=== PATIENT | female | born 1950 | race Caucasian/White ===

== ENCOUNTER 2024-07-03 10:14 | Emergency (ER) | payer OTHER ==
[2024-07-03] MEDS ORDERED: NA CHLORIDE 0.9% 1,000 ML ONE (10:31)
[2024-07-03] MEDS ORDERED: ONDANSETRON 4 MG/2 ML VIAL ONE (10:31)
[2024-07-03] MEDS ORDERED: MORPHINE 4 MG/ML SYR ONE (10:31)
[2024-07-03] MEDS ORDERED: NA CHLORIDE 0.9% 100 ML ONE (10:52)
[2024-07-03] MEDS ORDERED: CEFTRIAXONE 1000 MG/VIAL ONE (10:52)
[2024-07-03 10:58] LABS: Absolute Lymphocytes (CBC) 0.4 K/uL (0.7-4.9); Absolute Monocytes 0.6 K/uL (0.1-1.3); Absolute Neutrophil 8.4 K/uL (1.8-8.0); Basophils % 0.3 % (0-1.3); Eosinophils % 0.1 % (0-4.4); Hematocrit 37.6 % (36.0-45.0); Hemoglobin 12.6 g/dL (12.0-15.0); Lymphocytes % 4.8 % (15.3-44.8); MCH 28.2 pg (27.0-35.0); MCHC 33.6 g/dL (32.0-36.0); MPV 7.9 fL (7.6-11.3); Neutrophils % 88.8 % (41.7-73.7); Platelets 198 thou/uL (152-406); RBC Red Blood Cell Count 4.48 M/uL (3.86-4.86); Red Cell Distribution Width 14.2 % (12.1-15.2)
[2024-07-03 11:17] LABS: Albumin 3.3 g/dL (3.4-5.0); Albumin/Globulin Ratio 0.9 (1.1-1.8); Anion Gap 10.5 mEq/L (5.0-15.0); Bilirubin Total 0.7 mg/dL (0.2-1.0); Globulin 3.7 g/dL (2.3-3.5); Potassium 3.5 mEq/L (3.5-5.1)
[2024-07-03 11:50] LABS: Blood Morphology Comment NOT SEEN (NOT SEEN); Platelet Estimate ADEQ; White Blood Cell Scan OK (OK)
--- NOTE | 2024-07-03 12:09 | RAD REPORT ---
EXAMINATION: CT ABDOMEN AND PELVIS WITH CONTRAST CLINICAL INDICATION: Abdominal pain TECHNIQUE: CT abdomen and pelvis was performed, after the administration of 100 cc Isovue-300.. Sagit gregory and coronal reconstructions were obtained. One or more of the following dose reduction techniques were used: Automated exposure control, adjustment of the mA and kV according to patient si ze, and iterative reconstruction. Unless otherwise specified, incidental findings do not require dedicated imaging follow-up. [id number]. Oral contrast was not given which limits evaluation of bowel and appendix. COMPARISON: .None FINDINGS: Small gallstone. Gallbladder wall does not appear thickened. Tiny low-density lesions in the liver are too small to characterize but probably benign. Spleen, pancreas, adrenals and left kidney unremarkable. Small right renal calculus. No hydronephrosis. Liver, spleen, pancreas, adrenals and kidneys appear unremarkable No evidence of diverticulitis. An abnormal appendix is not seen. Bladder wall appears mildly thickened. No adnexal mass. Postsurgical changes lumbar spine. Mild anterior subluxation L3 on L4 and L4 on L5. Small umbilical hernia : IMPRESSION: Cholelithiasis without evidence Small nonobstructing right renal calculus Mild bladder wall thickening may indicate cystitis
--- NOTE | 2024-07-03 12:09 | RAD REPORT ---
Procedure: Chest Single View HISTORY: Abdominal pain COMPARISON: 2011 FINDINGS: The lungs appear clear of acute infiltrate. No significant pleural effusion noted. The heart is normal size. IMPRESSION: No acute abnormality is displayed.
[2024-07-03] MEDS ORDERED: CEFDINIR 300 MG CAP PO ONE (12:40)
[2024-07-03] MEDS ORDERED: CIPROFLOXACIN HCL 500 MG TAB ONE (12:40)
[2024-07-03 12:56] LABS: Specific Gravity 1.009 (1.005-1.030); Sqamous Epithelial <5 /HPF (None Seen); Urine Bacteria <20 /HPF (<20); Urine Bilirubin NEGATIVE (Negative); Urine Blood Negative (Negative); Urine Clarity Turbid (Clear); Urine Color Colorless (Yellow); Urine Culture Reflex Order REFLEXED; Urine Glucose NEGATIVE (Negative); Urine Ketones NEGATIVE (Negative); Urine Microscopic Reflex YN ORDER UMIC; Urine Nitrite NEGATIVE (Negative); Urine Protein NEGATIVE (Negative); Urine RBC <5 /HPF (None Seen); Urine Urobilinogen Normal (Normal); Urine WBC 20-50 /HPF (<5)
--- NOTE | 2024-07-03 12:56 | EDPHYS ---
Physician Documentation [facility] Name: Eboni Angela Age: 73 yrs Sex: Female : 1950 Arrival Date: 07/03/2024 Time: 10:14 Bed 8 Private MD: Daron Gonsalez HPI: 07/03 12:51 This 73 yrs old Female presents to ER via Ambulatory with complaints of Low sesar Back Pain, Urinary Problem. 12:51 The patient presents with pain that is acute, with no known mechanism of injury. The sesar symptoms are located in the low back, left low back and left mid back. The pain does not radiate. The problem was sustained from unknown cause. Modifying factors: The patient symptoms are alleviated by nothing, the patient symptoms are aggravated by any movement. Historical: - Allergies: 10:32 No Known Allergies; hb - Home Meds: 10:32 hydroxychloroquine oral [Active]; hb - PSHx: 10:32 Carpal Tunnel - Right; Back; hb - Immunization history:: Adult Immunizations up to date. - Infectious Disease History:: Denies. - Social history:: Smoking status: Patient denies any tobacco usage or history of. - Family history:: not pertinent. ROS: 12:52 Constitutional: Negative for fever, chills, and weight loss, Eyes: Negative for injury, sesar pain, redness, and discharge, ENT: Negative for injury, pain, and discharge, Neck: Negative for injury, pain, and swelling, Cardiovascular: Negative for chest pain, palpitations, and edema, Respiratory: Negative for shortness of breath, cough, wheezing, and pleuritic chest pain, Abdomen/GI: Negative for abdominal pain, nausea, vomiting, diarrhea, and constipation, MS/Extremity: Negative for injury and deformity, Skin: Negative for injury, rash, and discoloration, Neuro: Negative for headache, weakness, numbness, tingling, and seizure, Psych: Negative for depression, anxiety, suicide ideation, homicidal ideation, and hallucinations, Allergy/Immunology: Negative for hives, rash, and allergies, Endocrine: Negative for neck swelling, polydipsia, polyuria, polyphagia, and marked weight changes, Hematologic/Lymphatic: Negative for swollen nodes, abnormal bleeding, and unusual bruising, 12:52 Back: Positive for pain at rest, flank pain, on the right, 12:52 : Positive for urinary symptoms, urinary frequency, small amounts, burning with urination, Exam: 12:53 Constitutional: This is a well developed, well nourished patient who is awake, alert, sesar and in no acute distress. Head/Face: Normocephalic, atraumatic. Eyes: Pupils equal round and reactive to light, extra-ocular motions intact. Lids and lashes normal. Conjunctiva and sclera are non-icteric and not injected. Cornea within normal limits. Periorbital areas with no swelling, redness, or edema. ENT: Nares patent. No nasal discharge, no septal abnormalities noted. Tympanic membranes are normal and external auditory canals are clear. Oropharynx with no redness, swelling, or masses, exudates, or evidence of obstruction, uvula midline. Mucous membranes moist. Neck: Trachea midline, no thyromegaly or masses palpated, and no cervical lymphadenopathy. Supple, full range of motion without nuchal rigidity, or vertebral point tenderness. No Meningismus. Chest/axilla: Normal chest wall appearance and motion. Nontender with no deformity. No lesions are appreciated. Cardiovascular: Regular rate and rhythm with a normal S1 and S2. No gallops, murmurs, or rubs. Normal PMI, no JVD. No pulse deficits. Respiratory: Lungs have equal breath sounds bilaterally, clear to auscultation and percussion. No rales, rhonchi or wheezes noted. No increased work of breathing, no retractions or nasal flaring. Abdomen/GI: Soft, non-tender, with normal bowel sounds. No distension or tympany. No guarding or rebound. No evidence of tenderness throughout. Skin: Warm, dry with normal turgor. Normal color with no rashes, no lesions, and no evidence of cellulitis. MS/ Extremity: Pulses equal, no cyanosis. Neurovascular intact. Full, normal range of motion., bilateral aka Neuro: Awake and alert, GCS 15, oriented to person, place, time, and situation. Cranial nerves II-XII grossly intact. Motor strength 5/5 in all extremities. Sensory grossly intact. Cerebellar exam normal. Normal gait. Psych: Awake, alert, with orientation to person, place and time. Behavior, mood, and affect are within normal limits. 12:53 Back: pain, that is mild, ROM is normal, normal spinal alignment noted, CVA tenderness, is absent, 13:03 ECG was reviewed by the Attending Physician. [facility] Vital Signs: 10:30 BP 151 / 65; Pulse 93; Resp 16; Temp 99.2(O); Pulse Ox 96% on R/A; Weight 72.57 kg; hb Height 5 ft. 5 in. ; Pain /; 13:08 BP 144 / 72; Pulse 89; Resp 15; Temp 98.4; Pulse Ox 96% ; jl7 10:30 Body Mass Index 26.63 (72.57 kg, 165.1 cm) hb 10:30 Pain Scale: Adult hb MDM: 10:24 Medical Screening Exam initiated sesar 12:54 Differential diagnosis: UTI, kidney stone. Data reviewed: vital signs, nurses notes, [facility] lab test result(s), radiologic studies. Consideration of Admission/Observation Patient was admitted/placed on observation. Escalation of care including admission/observation considered. I considered the following discharge prescriptions or medication management in the emergency department Medications were administered in the Emergency Department. See MAR. Independent interpretation of the following test(s) in the Emergency Department CT Scan: My interpretation is ct abd pel. Historians other than the Patient: Spouse/Significant Other: well informed. Care significantly affected by the following chronic conditions: Obesity. 07/03 10:25 Order name: CBC with Diff; Complete Time: 12:20 [facility] 07/03 10:25 Order name: CMP; Complete Time: 12:20 [facility] 07/03 10:25 Order name: Lipase; Complete Time: 12:20 [facility] 07/03 10:25 Order name: Urinalysis w/ reflexes; Complete Time: 12:57 [facility] 07/03 10:31 Order name: Blood Culture Adult (2) [facility] 07/03 10:31 Order name: Lactate w/ 2H reflex if indic.; Complete Time: 12:20 [facility] 07/03 11:50 Order name: CBC Smear Scan; Complete Time: 12:20 [facility] 07/03 12:59 Order name: Urine Culture [facility] 07/03 10:25 Order name: CT Abd/Pelvis - IV Contrast Only; Complete Time: 12:20 [facility] 07/03 10:31 Order name: Chest Single View XRAY; Complete Time: 12:20 [facility] 07/03 10:25 Order name: IV Saline Lock; Complete Time: 10:57 [facility] 07/03 10:25 Order name: Labs collected and sent; Complete Time: :57 [facility] EC:03 Rate is 88 beats/min. Rhythm is regular. QRS Lyman is Normal. AL interval is normal. QRS sesar interval is normal. QT interval is normal. No Q waves. T waves are Normal. No ST changes noted. Clinical impression: Normal ECG and No evidence of ischemia. Interpreted by me. Reviewed by me. Administered Medications: 10:50 Drug: NS 0.9% IV 1000 ml IV at 1 bolus Per protocol; to be given as a bolus over 60 jl7 minutes Route: IV; Rate: 1 bolus; Site: right antecubital; 12:00 Follow up: Response: No adverse reaction; IV Status: Completed infusion; IV Intake: jl7 1000ml 11:58 Drug: Rocephin IV 1 grams IV at per protocol once; Given slow IV push per pharmacy ap3 instructions Route: IV; Rate: per protocol; Site: right antecubital; 12:15 Follow up: Response: No adverse reaction; IV Status: Completed infusion jl7 12:54 Drug: Ciprofloxacin PO 500 mg PO once Route: PO; jl7 12:56 Follow up: Response: Medication administered at discharge. jl7 12:54 Drug: Cefdinir PO 300 mg PO once Route: PO; jl7 12:56 Follow up: Response: Medication administered at discharge. jl7 12:55 Not Given (Patient Refused): morphineor iv 2 mg IVP once over 4 mins jl7 12:56 Not Given (Patient Refused): ondansetron 4 mg IVP once; over 2 minutes jl7 Disposition Summary: 07/03/24 12:56 Discharge Ordered Notes: Location: Home sesar Problem: new sesar Symptoms: have improved sesar Condition: Stable sesar Diagnosis - Dysuria sesar - Acute cystitis sesar - UTI/ Urinary tract infection, site not specified sesar Followup: sesar - With: Private Physician - When: 2 - 3 days - Reason: Recheck today's complaints, Continuance of care, Re-evaluation by your physician Discharge Instructions: - Discharge Summary Sheet sesar - Dysuria sesar - Urinary Tract Infection, Adult sesar - Urinary Tract Infection, Adult, [id number] sesar Forms: - Medication Reconciliation Form sesar - Antibiotic Education sesar - Prescription Opioid Use sesar - Patient Portal Instructions sesar - Leadership Thank You Letter [facility] Prescriptions: - cefdinir 300 mg Oral capsule - take 1 capsule ORAL route 2 times per day; 14 capsule; Refills: 0, Product sesar Selection Permitted - Cipro 250 mg Oral tablet - take 1 tablet ORAL route every 12 hours; 6 tablet; Refills: 0, Product sesar Selection Permitted - Pyridium 200 mg Oral Tablet - take 1 tablet ORAL route every 8 hours for 3 days; 9 tablet; Refills: 0, [facility] Product Selection Permitted Signatures: Dispatcher [employer] EDMS Daron Saldana MD MD cha Baxter, Heather, [place] HO Gay Gallegos RN RN jl7 Renea Pascal RN RN ap3 Corrections: (The following items were deleted from the chart) 10:25 10:25 CBC+H.LAB.BRZ ordered. EDMS EDMS 10:25 10:25 COMPREHENSIVE METABOLIC PANEL+C.LAB.BRZ ordered. EDMS EDMS 10:25 10:25 LIPASE+C.LAB.BRZ ordered. EDMS EDMS 10:25 10:25 Urinalysis+U.LAB.BRZ ordered. EDMS EDMS 10:25 10:25 Abdomen Pelvis W Con+CT.RAD.BRZ ordered. EDMS EDMS
--- NOTE | 2024-07-03 12:56 | ER ---
Nurse's Notes [facility] Name: Eboni Angela Age: 73 yrs Sex: Female : 1950 Arrival Date: 07/03/2024 Time: 10:14 Bed 8 Private MD: Diagnosis: Dysuria;Acute cystitis;UTI/ Urinary tract infection, site not specified Presentation: 07/03 10:30 Chief complaint: Sent from urgent care for T102, chills, and right mid back pain since hb last night. Tylenol administered 30 mins MANAGER ICU. Coronavirus screen: At this time, the client does not indicate any symptoms associated with coronavirus-19. Ebola Screen: No symptoms or risks identified at this time. Initial Sepsis Screen: Does the patient meet any 2 criteria? No. Patient's initial sepsis screen is negative. Does the patient have a suspected source of infection? No. Patient's initial sepsis screen is negative. Risk Assessment: Do you want to hurt yourself or someone else? Patient reports no desire to harm self or others. Onset of symptoms was July 02, 2024. 10:30 Method Of Arrival: Ambulatory hb 10:30 Acuity: ESA 3 hb Historical: - Allergies: 10:32 No Known Allergies; hb - Home Meds: 10:32 hydroxychloroquine oral [Active]; hb - PSHx: 10:32 Carpal Tunnel - Right; Back; hb - Immunization history:: Adult Immunizations up to date. - Infectious Disease History:: Denies. - Social history:: Smoking status: Patient denies any tobacco usage or history of. - Family history:: not pertinent. Screenin:00 [facility] ED Fall Risk Assessment (Adult) History of falling in the last 3 months, jl7 including since admission No falls in past 3 months (0 pts) Confusion or Disorientation No (0 pts) Intoxicated or Sedated No (0 pts) Impaired Gait No (0 pts) Mobility Assist Device Used No (0 pt) Altered Elimination No (0 pt) Score/Fall Risk Level 0 - 2 = Low Risk Oriented to surroundings, Maintained a safe environment. Abuse screen: Denies threats or abuse. Denies injuries from another. Nutritional screening: No deficits noted. Tuberculosis screening: No symptoms or risk factors identified. Assessment: 10:30 General: Appears in no apparent distress. uncomfortable, Behavior is calm, cooperative, jl7 appropriate for age. Pain: Complains of pain in left mid back Pain currently is 1 out of 10 on a pain scale. Neuro: Level of Consciousness is awake, alert, obeys commands, Oriented to person, place, time, situation. Cardiovascular: Patient's skin is warm and dry. Respiratory: Airway is patent Respiratory effort is even, unlabored, Respiratory pattern is regular, symmetrical. : Denies burning with urination. Derm: Skin is pink, warm \T\ dry. 11:30 Reassessment: Patient appears in no apparent distress at this time. No changes from jl7 previously documented assessment. Patient and/or family updated on plan of care and expected duration. Pain level reassessed. Patient is alert, oriented x 3, equal unlabored respirations, skin warm/dry/pink. 12:30 Reassessment: Patient appears in no apparent distress at this time. No changes from jl7 previously documented assessment. Patient and/or family updated on plan of care and expected duration. Pain level reassessed. Patient is alert, oriented x 3, equal unlabored respirations, skin warm/dry/pink. Vital Signs: 10:30 BP 151 / 65; Pulse 93; Resp 16; Temp 99.2(O); Pulse Ox 96% on R/A; Weight 72.57 kg; hb Height 5 ft. 5 in. ; Pain /; 13:08 BP 144 / 72; Pulse 89; Resp 15; Temp 98.4; Pulse Ox 96% ; jl7 10:30 Body Mass Index 26.63 (72.57 kg, 165.1 cm) hb 10:30 Pain Scale: Adult hb ED Course: 10:20 Patient arrived in ED. al6 10:24 Daron Saldana MD is Attending Physician. sesar 10:25 Gay Gallegos RN is Primary Nurse. jl7 10:32 Triage completed. hb 10:33 Arm band placed on. hb 10:45 Initial lab(s) drawn, by me, sent to lab. First set of blood cultures drawn by me. jl7 Inserted saline lock: 20 gauge in right antecubital area, using aseptic technique. Blood collected. Flushed with 10 mL NS. 10:46 EKG done, by ED staff, reviewed by Daron Saldana MD. ap3 10:59 Chest Single View XRAY In Process Unspecified. EDMS 11:00 Patient has correct armband on for positive identification. Bed in low position. Call jl7 light in reach. Side rails up X 1. Provided Education on: USE OF CALL NGUYEN. 11:51 CT Abd/Pelvis - IV Contrast Only In Process Unspecified. EDMS 12:00 Urine collected: clean catch specimen, clear. jl7 13:08 No provider procedures requiring assistance completed. IV discontinued, intact, jl7 bleeding controlled, No redness/swelling at site. Pressure dressing applied. Administered Medications: 10:50 Drug: NS 0.9% IV 1000 ml IV at 1 bolus Per protocol; to be given as a bolus over 60 jl7 minutes Route: IV; Rate: 1 bolus; Site: right antecubital; 12:00 Follow up: Response: No adverse reaction; IV Status: Completed infusion; IV Intake: jl7 1000ml 11:58 Drug: Rocephin IV 1 grams IV at per protocol once; Given slow IV push per pharmacy ap3 instructions Route: IV; Rate: per protocol; Site: right antecubital; 12:15 Follow up: Response: No adverse reaction; IV Status: Completed infusion jl7 12:54 Drug: Ciprofloxacin PO 500 mg PO once Route: PO; jl7 12:56 Follow up: Response: Medication administered at discharge. jl7 12:54 Drug: Cefdinir PO 300 mg PO once Route: PO; jl7 12:56 Follow up: Response: Medication administered at discharge. jl7 12:55 Not Given (Patient Refused): morphineor iv 2 mg IVP once over 4 mins jl7 12:56 Not Given (Patient Refused): ondansetron 4 mg IVP once; over 2 minutes jl7 Medication: 12:30 VIS not applicable for this client. jl7 Intake: 12:00 IV: 1000ml; Total: 1000ml. jl7 Outcome: 12:56 Discharge ordered by . sesar 13:08 Discharged to home ambulatory, jl7 13:08 Condition: stable 13:08 Discharge instructions given to patient, family, Instructed on discharge instructions, follow up and referral plans. medication usage, Demonstrated understanding of instructions, follow-up care, medications, Prescriptions given X 3, 13:09 Patient left the ED. jl7 Signatures: Dispatcher [employer] EDCO Daron Saldana MD MD cha Baxter, Heather, RN RN Gay Waite RN RN jl7 Renea Pascal, RN RN ap3 Daina Magallanes
[2024-07-03 13:42] VITALS: O2SAT 96
[2024-07-03 13:43] VITALS: BP 144/72; TEMP 98.4
--- NOTE | 2024-07-05 11:06 | EKG ---
Test Date: 2024-07-03 Test Time: 09:42:36 [place] Manager: ALP MEASUREMENT RESULTS: Intervals: Rate: 88 MN: 168 QRSD: 94 QT: 370 QTc: 447 [place]: P: 67 MN: 168 QRS: 39 T: 71 INTERPRETIVE STATEMENTS: Normal sinus rhythm Normal ECG No previous ECG available for comparison Electronically Signed On 07-05-24 10:59:42 CDT by Gregorio Ding
== END 2024-07-03 13:09 | disposition home or self-care (01) ==
LOC: ER 10:14
DX: N30.00 Acute cystitis without hematuria (principal)
CPT/HCPCS: 96365; 96361; 93005; 87040 ×2; 87088; 85025; 81001; 87086; 36415; 87205; 83605; 87077; 87186; 83690; 80053; 74177; 71045; 99284; Q9967; J7030; J0696; J2405